=== PATIENT | female | born 1985 | race Caucasian/White ===

== ENCOUNTER → 2019-07-24 | Outpatient (CLI) | payer OTHER ==
[~2019-07-24] MED LIST: PRENATAL1 TA1 PO
== END ==
LOC: MC.RAD 09:15
DX: N60.19 Diffuse cystic mastopathy of unspecified breast (principal)
CPT/HCPCS: G0279

== ENCOUNTER → 2020-08-13 | Outpatient (CLI) | payer OTHER | LOC: COL.RAD 07:34 | DX: S73.101A Unspecified sprain of right hip, initial encounter (principal); M67.853 Other specified disorders of tendon, right hip | CPT/HCPCS: A9585; Q9967 ==